=== PATIENT | male | born 1960 | race Hispanic/Latino ===

== ENCOUNTER 2022-03-26 22:32 | Emergency (ER) | payer SELFPAY ==
[~2022-03-26] VITALS: Ht 167.6 cm; Wt 90.7 kg
[2022-03-26] MEDS ORDERED: IBUPROFEN 600 MG TAB PO STA (23:15)
== END 2022-03-27 00:03 | disposition home or self-care (01) ==
LOC: ER 22:44
DX: R50.9 Fever, unspecified (principal); U07.1 COVID-19; R05.9 Cough, unspecified; J02.9 Acute pharyngitis, unspecified; K21.9 Gastro-esophageal reflux disease without esophagitis
CPT/HCPCS: 83518; 87070; 99282

== ENCOUNTER 2022-04-01 08:36 | Emergency (ER) | payer SELFPAY ==
[~2022-04-01] VITALS: Ht 167.6 cm; Wt 90.7 kg
[2022-04-01] MEDS ORDERED: ASPIRIN 81 MG CHEW TAB PO ONE (08:45)
[2022-04-01] MEDS ORDERED: ONDANSETRON HCL INJ 2MG/ML 2ML 2 MG/ML VIAL IV STA (08:45)
[2022-04-01] MEDS ORDERED: HYDRALAZINE HCL 20 MG/ML VIAL IV STA (08:54)
[2022-04-01 08:57] LABS: BASOPHILS # (AUTO) 0.1 (0.0-0.1); BASOPHILS % 0.6 % (0.0-1.0); HEMOGLOBIN 15.9 g/dL (14.0-18.0); LYMPHOCYTES # (AUTO) 6.3 (1.0-3.2); LYMPHOCYTES % 34.8 % (18.0-39.1); MEAN CORPUSCULAR HEMOGLOBIN 30.5 pg (28-32); MEAN CORPUSCULAR HGB CONC 34.6 g/dL (31-35); MEAN CORPUSCULAR VOLUME 88.3 fL (81-99); MONOCYTES % 5.6 % (4.4-11.3); NEUTROPHILS # (AUTO) 9.4 (2.1-6.9); NEUTROPHILS % 51.8 % (38.7-80.0); PLATELET COUNT 374 x10e3/uL (140-360); RED BLOOD COUNT 5.21 x10e6/uL (4.3-5.7); RED CELL DISTRIBUTION WIDTH 12.7 % (11.7-14.4)
[2022-04-01] MEDS ORDERED: FAMOTIDINE 20 MG/2 ML VIAL IV NR (09:15)
[2022-04-01] MEDS ORDERED: DONNATAL/LIDOCAINE/MAALOX 30 ML SUSP PO NR (09:15)
[2022-04-01 09:19] LABS: ALBUMIN 3.2 g/dL (3.5-5.0); ALBUMIN/GLOBULIN RATIO 0.8 (0.8-2.0); ANION GAP 15.6 mmol/L (8-16); CALCIUM 8.3 mg/dL (8.4-10.2); CREATININE, SERUM 0.92 mg/dL (0.72-1.25); POTASSIUM 3.6 mmol/L (3.5-5.1)
[2022-04-01] MEDS ORDERED: HYDROCORTISONE SOD SUCCINATE 100 MG VIAL IV ONE ×2 (09:30→13:30)
[2022-04-01 10:34] LABS: LYMPHOCYTES % (MANUAL) 20 % (19-48); MONOCYTES % (MANUAL) 9 % (3.4-9.0); NEUTROPHILS % (MANUAL) 58 % (40-74); PLATELET ESTIMATE ADEQUATE; PLATELET MORPHOLOGY COMMENT NORMAL; RBC MORPHOLOGY COMMENT NORMAL
[2022-04-01] MEDS ORDERED: DIPHENHYDRAMINE HCL INJ 50 MG/ML VIAL IV NR (13:30)
[2022-04-01] MEDS ORDERED: IOPAMIDOL 370 MG/ML 100 ML INFUS..BTL INJ ONE (14:53)
[2022-04-01] MEDS ORDERED: PEPCID20 MG PO (16:07)
== END 2022-04-01 16:39 | disposition home or self-care (01) ==
LOC: ER 08:41
DX: R07.9 Chest pain, unspecified (principal); K21.9 Gastro-esophageal reflux disease without esophagitis
CPT/HCPCS: 36415; 71045; 71275; 74177; 80053; 83690; 84484; 85025; 93005; 99284; J0360; J1200; J1720; J2405; Q9967

== ENCOUNTER → 2022-10-01 | Outpatient (CLI) | payer OTHER ==
[~2022-10-01] MED LIST: PEPCID20 MG PO
== END ==
LOC: RAD 12:25
PROVIDERS: ATTEND Internal Medicine
DX: Z00.00 Encounter for general adult medical examination without abnormal findings (principal)
CPT/HCPCS: 71046